=== PATIENT | female | born 1950 | race Two or more races ===

== ENCOUNTER 2020-06-05 08:42 | Outpatient (CLI) | payer OTHER ==
[2020-06-06] MEDS ORDERED: FORTAMET500 MG PO (11:19)
[2020-06-06] MEDS ORDERED: ZOLOFT100 MG PO (11:20)
[2020-06-06] MEDS ORDERED: [UNRECOGNIZED DRUG - CODE] PO (11:20)
[2020-06-06] MEDS ORDERED: ZESTRIL2.5 MG PO (11:21)
== END 2020-06-05 08:48 | disposition home or self-care (01) ==
LOC: RAD 08:42
PROVIDERS: ATTEND Obstetrics & Gynecology Gynecology
DX: R07.89 Other chest pain (principal)

== ENCOUNTER 2020-06-12 06:13 | Day surgery (SDC) | payer OTHER ==
[~2020-06-12 06:13] MED LIST: FORTAMET500 MG PO; ZESTRIL2.5 MG PO; ZOLOFT100 MG PO; [UNRECOGNIZED DRUG - CODE] PO
== END 2020-06-12 11:35 | disposition home or self-care (01) ==
LOC: CIR.AMB 06:13
PROVIDERS: ATTEND Obstetrics & Gynecology Gynecology
DX: N36.41 Hypermobility of urethra (principal); N39.3 Stress incontinence (female) (male); Z53.09 Procedure and treatment not carried out because of other contraindication